=== PATIENT | female | born 2000 | race African-American/Black ===

== ENCOUNTER 2023-07-04 14:05 | Emergency (ER) | payer SELFPAY | END 2023-07-04 15:15 | disposition home or self-care (01) | LOC: ERS 14:05 | DX: G51.0 Bell's palsy (principal) | CPT/HCPCS: 99283 ==

== ENCOUNTER 2024-02-07 15:24 | Emergency (ER) | payer SELFPAY ==
[2024-02-07] MEDS ORDERED: Lidocaine 1% w/Epinephrine 1:100K 20 ML VIAL ONE (16:04)
[2024-02-07] MEDS ORDERED: traMADol HCl 50 MG TAB ONE (16:05)
[2024-02-07 16:43] LABS: Pregnancy Test - Urine (BHCG) Negative (Negative); Pregu Control Background? CLEAR/WHITE (CLR/WHITE); Pregu Control Bar Appear? YES (CONTROL BAR); Specific Gravity 1.027 (1.002-1.036)
[2024-02-07 16:46] LABS: Bilirubin Negative (Negative); Blood, Urine 2+ (Negative); CAUTI Indications for Culture Dysuria,urgency,freq; Clarity Turbid (Clear); Glucose, Urine (Dipstick) Normal (Negative); Ketone, Urine Negative (Negative); Leukocyte 250 Leu/uL (Negative); Nitrite Negative (Negative); Protein, Urine (Dipstick) 50 mg/dL (Neg-Trace); Specific Gravity, Urine 1.027 (1.002-1.036); Urobilinogen Normal mg/dL (Less than 2); pH, Urine 5.5 (5.0-9.0)
[2024-02-07 16:57] LABS: Bacteria/HPF 3+ HPF (None Seen)
[2024-02-07 16:58] LABS: WBC/HPF Greater than 50 HPF (0-3)
[2024-02-07 16:59] LABS: Squamous Epithelial 21-50 HPF (0-3)
[2024-02-07 17:00] LABS: Urine Culture Reflex Yes Yes
== END 2024-02-07 16:55 | disposition home or self-care (01) ==
LOC: ERS 15:24
DX: N76.4 Abscess of vulva (principal); F17.210 Nicotine dependence, cigarettes, uncomplicated
CPT/HCPCS: 56405; 81001; 81025; 87086